=== PATIENT | female | born 1985 | race African-American/Black ===

== ENCOUNTER 2024-04-13 13:46 | Outpatient (CLI) | payer OTHER ==
[~2024-04-13 13:46] MED LIST: ALBUTEROL SULFATE 2.5MG/0.5ML INH NEB SOLN INH PRN; EPINEPHrine INJ 1 MG/ML 1ML AMP IM PRN; NS 1,000 ML IV SCH; diphenhydrAMINE 50MG/ML VIAL IV PRN; methylPREDNISolone 125MG 2ML VIAL IV PRN
[2024-04-13] MEDS: FERRIC CARBOXYMALTOSE INJ 750 MG in NS 250 ML (>50kg) IV ONE (14:22)
[2024-04-13 14:28] VITALS: BP 138/80; O2SAT 99
[2024-04-13 15:40] VITALS: BP 124/83; O2SAT 100
== END 2024-04-13 15:45 | disposition home or self-care (01) ==
LOC: M INFU 13:46
PROVIDERS: ATTEND Student in an Organized Health Care Education/Training Program
DX: E61.1 Iron deficiency (principal)
CPT/HCPCS: 96365; J1439

== ENCOUNTER 2024-04-21 11:10 | Outpatient (CLI) | payer OTHER ==
[~2024-04-21] VITALS: Ht 152.4 cm; Wt 77.8 kg
[2024-04-21 11:10] VITALS: BP 120/73; O2SAT 100
[2024-04-21] MEDS: FERRIC CARBOXYMALTOSE INJ 750 MG in NS 250 ML (>50kg) IV ONE (11:18)
[2024-04-21 12:50] VITALS: BP 120/71; O2SAT 100
== END 2024-04-21 12:45 ==
LOC: M INFU 11:10
PROVIDERS: ATTEND Student in an Organized Health Care Education/Training Program
DX: E61.1 Iron deficiency (principal)
CPT/HCPCS: 96365; J1439

== ENCOUNTER → 2024-07-14 | Outpatient (REF) | payer OTHER | LOC: M LAB REF 16:10 | PROVIDERS: ATTEND Nurse Practitioner Family | DX: R30.0 Dysuria (principal) ==

== ENCOUNTER → 2025-10-05 | Outpatient (CLI) | payer OTHER | LOC: M WHC 14:48 | PROVIDERS: ATTEND Family Medicine | DX: Z12.31 Encounter for screening mammogram for malignant neoplasm of breast (principal) ==